=== PATIENT | female | born 1965 | race Hispanic/Latino ===

== ENCOUNTER 2016-09-11 05:41 | Day surgery (SDC) | payer OTHER ==
--- NOTE | 2016-09-10 14:34 | PCM.HPANE ---
Patient Data Surgeon Admitting Provider: Attending Provider:Shelby Gross MD Primary Care Physician:Anne Yee Other Provider:Jack Onofre Anesthesia Reason for Visit Abnormal Uterine And Vaginal Bleeding Ht/WT & BMI Height (Feet): 5 Height (Inches): 2 Weight (Kilograms): 92.900 Body Mass Index 37.00 Allergies Coded Allergies: Sulfa (Sulfonamide Antibiotics) (Verified Allergy, Unknown, Rash, 03/27/14) amoxicillin (Verified Allergy, Unknown, facial swelling, hives, 03/27/14) clavulanic acid (Verified Allergy, Unknown, facial swelling, hives, ) Uncoded Allergies: CODIENE (Adverse Reaction, Mild, upset stomach, 03/27/14) Past Anesthesia History Anesthesia History: Denies:: Abnormal Airway, Anesthesia Reactions, Difficult Intubation, Fam Anesthesia Reaction, Fam Malignant Hypertherm, Malignant Hyperthermia Diabetes History Hx Diabetes?: No MRSA MRSA: No Medications Blood Thinner: Coumadin Reported Medications [arixtra] No Conflict CheckUnknown Dose DAILY 09/08/16 Warfarin Sodium 5 Mg Tablet7.5 Mg PO ,, sat, sun 30 Days Ref 0 last dose coumadin to be 09/0409/08/16 Warfarin Sodium 5 Mg Tablet5 Mg PO 3xweek 30 Days Ref 0 09/08/16 Venlafaxine ER 75 Mg Cap.er.24h75 Mg PO DAILY Ref 0 09/08/16 Tamoxifen Citrate 20 Mg Qrdhee29 Mg PO DAILY 09/08/16 Fish Oil/Borage/Flax/Om3,6,9#1 ([place] 3-6-9 1,200 mg Softgel)1,200 Mg Capsule1, 200 Mg PO DAILY 09/08/16 Multivitamin (Multi Vitamin Daily)1 Each Tablet1 Each PO DAILY 30 Days Ref 0 09/08/16 Cyanocobalamin/Folic Acid (Vitamin M26-Bnajp Acid Tablet)1 Each Tablet1 Each PO DAILY 09/08/16 Cholecalciferol (Vitamin D3) (Vitamin D3)2,000 Unit Capsule2,000 Unit PO DAILY 09/08/16 Calcium Carbonate (Calcium)600 Mg [id number] Mg PO DAILY 09/08/16 Discontinued Reported Medications Venlafaxine ER (Effexor XR)75 Mg Gmaafqv17 Mg PO DAILY Ref 0 05/18/16 Warfarin Sodium 7.5 Mg Tablet7.5 Mg PO TH,SUN 30 Days Ref 0 05/18/16 Tamoxifen Citrate 20 Mg Tuiqzy80 Mg PO DAILY 09/03/15 Warfarin Sodium 5 Mg Tablet5 Mg PO MON,,WED,WED,SAT Ref 0 09/03/15 [place]-3 Fatty Acids/Fish Oil (Fish Oil 1,200 mg Softgel)1 Each Capsule1 Each PO DAILY 06/11/15 Calcium Carbonate (Calcium)600 Mg Qazxfz493 Mg PO DAILY 10/31/14 Cholecalciferol (Vitamin D3) (Vitamin D3)2,000 Unit Tablet2,000 Unit PO DAILY 10/18/14 Cyanocobalamin/Folic Acid (Vitamin L68-Hlfje Acid Tablet)1 Each Tablet1 Each PO DAILY 10/18/14 Multivitamin (Multi Vitamin Daily)1 Each Tablet1 Each PO DAILY 30 Days Ref 0 10/18/14 History History of ENT Problems?: Yes HEENT History: Positive for:: TMJ (wears nightguard) Denies:: Abnormal Airway Cataracts Difficult Intubation Dysphagia Hearing Problem Denture Type: None Teeth Condition: Within Normal Limits Hx of Heart Problems?: Yes Cardiovascular History: Positive for:: Thrombophlebitis (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) Denies:: AICD Abdominal Aortic Aneurism Atrial Fibrillation Cardiac Surgery Chest Pain Congestive Heart Failure Edema Hypertension Irregular Heartbeat Pacemaker Valvular Heart Disease Hx of Respiratory Problem?: No Respiratory History: Positive for:: Pneumonia (prior hx of ) Denies:: Asthma COPD Cough Hemoptysis Oxygen Administration Tuberculosis Use of C-PAP Machine Hx Neurologic Problems?: No Neurological History: Denies:: Alzheimer's Disease CVA Dementia Dizziness Headaches Multiple Sclerosis Parkinson's Disease Seizures Hx of GI Problems?: Yes Hx of Problems?: No Genitourinary History: Denies:: HX of Hemodialysis Kidney Stones Urinary Tract Infection Female Hx: Positive for:: Problems with Breasts? (hx of right breast bx) Denies:: Currently Endometriosis Pelvic Inflammatory Skin History: Denies:: History Skin Disorders? Hx Musculoskeletal Problems?: No Musculoskeletal History: Positive for:: Musculoskeletal Trauma (soreness joints when works) Denies:: Back Injury Degenerative Joint Joint Replacement Systemic Lupus Hx of Psycho/Social Problems?: No Psycho Social History: Positive for:: Anxiety Denies:: Hx Depression Hx Surgeries?: Yes (lumpectomy) Hx Any Other Health Problems?: Yes Other History: Positive for:: Cancer (right breast) Denies:: Endocrine Disease Hospitalization Thyroid Disease History Blood Transfusions: Denies:: Blood Transfusions Hx Diabetes: No Hx Alcohol Use: YesHx Substance Use: No Smoking Status: Never Smoker Have You Smoked inLast 12 mo: No Stop/Bang S-Snoring: Do You Snore Loudly: No T-Tired: feel tired, fatigued: No O-Obsered: Observed not breath: No P-Blood Pressure: treated: No B- Body Mass Index > 35 kg/m2: Yes A- Age over 50: Yes N- Neck Large Circumference: No G- Gender Male: No KARY Total Score: 2 Risk Assessment Category Category 1A: Patient has history of documented sleep apnea, and HAS NOT received any narcotic, sedative or anesthesia administration during this stay. Category 1B: Patient has history of documented sleep apnea, and HAS received any narcotic , sedative or anesthesia administration during this stay Category 2: Patient has SUSPECTED Obstructive Sleep Apnea, and HAS received any narcotic , sedative or anesthesia administration during this stay. Category 3: Patient has SUSPECTED Obstructive Sleep Apnea and HAS NOT received narcotic, sedative or anesthesia administration during this stay. Category 4: Outpatient in Procedural Areas with known sleep apnea or who screen positive for High Risk via the STOP/BANG questionnaire. Exam Exam General Appearance: Alert, Oriented X3, Cooperative HEENT/AIRWAY: MP 2, Neck Movement (from), Mouth Opening (wnl) Lungs: Clear to Auscultation Heart: Exam Unremarkable Plan Impression Patient chart reviewed, patient interviewed and anesthestic plan with risks, benefits, and alternatives discussed, and informed consent obtained. ASA Physical Status: ASA2 Mod Systemic Disease Anesthetic Plan: GA Bene/Risks/Altern/Consents: Yes HP Complete Prior to Induction: Yes Jude Moreno MD Sep 10, 2016 14:34
[~2016-09-11] VITALS: Ht 157.5 cm; Wt 96.0 kg
[2016-09-11] VITALS (12 sets, daily range): BP systolic 93–122; BP diastolic 56–85; PULSE 64–91; RESP 14–18; O2SAT 94–100
[2016-09-11] MEDS: Lactated Ringer's 1,000 ML IV SCH ×6 (05:00→19:32)
[~2016-09-11 05:41] MED LIST: ARIXTRA; CALC600T12 PO; CHOL200047 PO; CYAN1TAB42 PO; FISH12002 PO; LORazepam 1 mg Tablet PO PRN; MULT-1018 PO; TAMO20TA4 PO; VENL75CA95 PO; WARF5TAB7 PO; fentaNYL-PF 50 mCg/mL 2 mL Inj IVPUSH PRN
[2016-09-11] MEDS ORDERED: Ondansetron 2 mg/mL 2 mL Inj ONE (05:42)
[2016-09-11] MEDS ORDERED: Propofol 10,000 mCg/mL 20 mL Inj ONE (05:42)
[2016-09-11] MEDS ORDERED: fentaNYL-PF 50 mCg/mL 2 mL Inj ONE (05:42)
[2016-09-11] MEDS ORDERED: HYDROmorphone 1 mg/mL Inj ONE (05:42)
[2016-09-11] MEDS ORDERED: Glycopyrrolate 0.2 MG/ML 1mL Inj ONE (05:42)
[2016-09-11] MEDS ORDERED: Remifentanil 1 mg/3 mL Inj ONE (05:42)
[2016-09-11] MEDS ORDERED: Neostigmine 1 mg/mL 10 mL Inj ONE (05:42)
[2016-09-11] MEDS ORDERED: Rocuronium 10 mg/mL 5 mL Inj ONE (05:42)
[2016-09-11] MEDS ORDERED: CeFAZolin Inj 2 GM in IV Premix 1 EACH IV ONE (06:00)
[2016-09-11] MEDS ORDERED: CeFAZolin 2 Gm/50 mL D5W Duplex Bag IV ONE (06:02)
[2016-09-11 06:37] LABS: BASOPHILS % (AUTO) 0.2 % (0-3); EOSINOPHILS % (AUTO) 0 % (0-5); MONOCYTES % (AUTO) 6.9 % (4-12); Mean Corpuscular Hemoglobin 30.8 pg (27.0-35.0); Mean Corpuscular Volume 91.5 fL (81-100); NEUTROPHILS % (AUTO) 48.2 % (40-74); Platelet Count 181 bil/L (150-400)
[2016-09-11 06:51] LABS: INR 0.95 ratio
[2016-09-11] MEDS ORDERED: Heparin 5,000 Unit/mL Inj ONE (07:20)
[2016-09-11] MEDS ORDERED: Heparin 5,000 Unit/mL Inj SUBQ ONE (07:55)
[2016-09-11] MEDS ORDERED: Lactated Ringer's 500 ML IV PRN (07:57)
[2016-09-11] MEDS ORDERED: Lactated Ringer's 1,000 ML IV SCH (07:57)
[2016-09-11] MEDS ORDERED: hydrALAZINE 20 mg/mL Inj IVPUSH PRN (08:00)
[2016-09-11] MEDS ORDERED: Labetalol 5 mg/mL 4 mL Inj IV PRN (08:00)
[2016-09-11] MEDS ORDERED: EPHEDrine Sulfate 50 mg/mL Inj IVPUSH PRN (08:00)
[2016-09-11] MEDS ORDERED: Dexamethasone 4 mg/mL Inj IVPUSH PRN (08:00)
[2016-09-11] MEDS ORDERED: Phenylephrine 10,000 mCg/mL Inj IVPUSH PRN (08:00)
[2016-09-11] MEDS ORDERED: HYDROmorphone 1 mg/mL Inj IVPUSH PRN (08:00)
[2016-09-11] MEDS ORDERED: Atropine 0.4 mg/mL Inj IVPUSH PRN (08:00)
[2016-09-11] MEDS ORDERED: Ondansetron 2 mg/mL 2 mL Inj IVPUSH PRN ×2 (08:00→10:50)
[2016-09-11] MEDS ORDERED: fentaNYL-PF 50 mCg/mL 2 mL Inj IVPUSH PRN (08:00)
[2016-09-11] MEDS ORDERED: Bupivacaine-MPF 0.5% W/EPI 30 mL Inj INFILTRATE ONE (08:11)
[2016-09-11] MEDS ORDERED: Lactated Ringer's 1,000 ML IV ONE (10:17)
--- NOTE | 2016-09-11 11:53 | PCM.ANEP1 ---
Post Anesthesia PACU Phase 1 Assessment Vital Signs Vital Signs Date Time Temp Pulse Resp B/P Pulse Ox O2 Delivery O2 Flow Rate FiO2 09/11/16 11:45 79 16 119/70 99 Nasal Cannula 2 09/11/16 11:36 64 15 121/70 98 Room Air 09/11/16 11:22 71 16 120/69 96 Room Air 09/11/16 11:15 77 17 122/68 97 Room Air 09/11/16 11:10 91 16 109/69 100 Simple Mask 8 09/11/16 11:05 91 14 118/66 100 Simple Mask 8 09/11/16 11:00 91 15 110/65 99 Simple Mask 8 09/11/16 10:57 36.6 86 17 119/56 98 Simple Mask 8 09/11/16 06:14 36.2 67 16 114/62 97 Room Air Anesthetic Administered: GA Level of Alertness: Awake, talking SAVAGE's with Equal Strength: Yes Pain: No Nausea or Vomiting: No CV Function & Hydration Stable: Yes Airway Device: Oxygen Delivery: Simple Mask Lungs: Normal Air Movement PACU Phase 2 Assessment Complications: No Follow up Care: No Patient Instructions Provided: N/A Jude Moreno MD Sep 11, 2016 11:53
--- NOTE | 2016-09-11 13:16 | OP ---
[address] [address] OPERATIVE REPORT PATIENT: CLOVIS DE ANDA : 1965 MR#: [id number] ADMIT: 09/11/2016 JOB ID: [id number] DATE OF SURGERY: 09/11/2016 SURGEON: Shelby Gross MD. CLAIM INSPECTOR: Verna Hansen MD. A it administrative assistant is very necessary for this procedure to complete for help with exposure and assist performing the procedure. PREOPERATIVE DIAGNOSIS(ES): 1. Postmenopausal vaginal bleeding. 2. History of breast cancer. 3. Desire for hysterectomy and bilateral salpingo-oophorectomy. POSTOPERATIVE DIAGNOSIS(ES): 1. Postmenopausal vaginal bleeding. 2. History of breast cancer. 3. Desire for hysterectomy and bilateral salpingo-oophorectomy. INDICATION FOR PROCEDURE: Same as above. This is a 51-year-old female, history of breast cancer, status post radiation therapy and also has been on tamoxifen for a couple of years. History of DVT, on Coumadin. She had postmenopausal vaginal bleeding. Endometrial biopsy was benign. Patient discussed with her hematology oncologist. Desire for hysterectomy, bilateral oophorectomy, so she can switch her medication from tamoxifen to other choices, then she may have chance to stop coumadin. Discussed with patient about the benefits, risks, alternatives of procedure. Patient understood the risk of infection, bleeding, injury to the organs around the uterus including but not limited to the bladder, ureters, major vessels, nerves, and bowels. She also understood there is a possibility of a laparotomy if procedure could not be completed by laparoscopy. Patient understood there is risk of symptoms, hot flashes, night sweats when ovaries removed. Informed consent signed. Patient was transferred to operating room after anesthesia was noted to be adequate. She was placed, dorsal lithotomy position. She was prepared and draped as normal sterile fashion. A speculum inserted to vagina, exposed the cervix. The cervix was grasped by a single-tooth tenaculum and cervix was dilated to 5 mm gently. A medium-sized VCare placed for manipulation. Meyer catheter inserted for urine drainage. Then, Veress needle inserted to her umbilicus to form pneumoperitoneum. Then, the Veress needle removed. A 5 mm incision placed at her umbilical area. Trocar placed with direct visualization. The pelvis and the abdominal cavity was examined. Noticed normal sized uterus, bilateral ovaries and tubes. Upper abdomen has no abnormal finding. Another two 5 mm incisions placed, both left and right side of lower abdomen. Two 5 mm trocars placed. At this time, the left IP ligament was grasped by Thunderbeat, coagulated and cut. Then, the left round ligament was grasped by Thunderbeat, coagulated, cut. The left broad ligament was brought down by the Thunderbeat in steps, to the level of the internal cervical os. Then, at this time, the bladder flap was created with Thunderbeat. The bladder was lowered down both bluntly and sharply, from uterine cervix. The posterior broad ligament was brought down to the level of the uterine sacral ligament. At this time, the left uterine artery was skeletonized and coagulated and cut. The same procedure was performed on the right side. At this time, valsectomy performed with thunderbeat and uterus removed from vagina. The vaginal cuff was sutured laparoscopicallyby Vloc suture, continuously. Suspension of bilateral uterosacral ligaments was performed. The pelvis was irrigated by warm normal saline. Hemostasis confirmed. Then, cystoscopy was performed. Confirmed no injury for the bladder. Confirmed that both ureters have clear urine spilled . All instruments removed from patient. The three 5 mm incisions closed with 4-0 Monocryl subcutaneously. The EBL during the procedure was 100 cc. All instrument, needles, laps and gauzes counted correct twice. Urine output during procedure was 300 cc. Fluid in was a liter. Two g Ancef was given before procedure; 5000 heparin was given subcu before the procedure. The patient was transferred to recovery room in a stable condition. [facility] MED[facility] CENTERJennifer
--- NOTE | 2016-09-11 14:30 | NUR ---
POST-OP Received from PACU via a gurney. On O2 at 2 LPM via NC. IVF ongoing. Patient is drowsy but can easily wake up. Denies pain/nausea/SOB. Puncture sites are CDI in her abdomen with Dermabond noted. IFC intact and draining to rick colored UO. Oriented to room and call light.
[2016-09-11] MEDS: oxyCODONE-Acetamin 5-325 mg Tablet PO PRN (18:48)
--- NOTE | 2016-09-11 21:05 | NUR ---
pain Rated 4 after 1 percocet. Alert, VSS. Taking bites of PO and drinking fluids. No nausea.
[2016-09-12 00:28] VITALS: BP 92/60; PULSE 72; RESP 18; O2SAT 98
[2016-09-12] MEDS: oxyCODONE-Acetamin 5-325 mg Tablet PO PRN ×3 (00:32→11:57)
[2016-09-12 04:16] VITALS: BP 90/61; PULSE 83; RESP 18; O2SAT 98
[2016-09-12] MEDS: Lactated Ringer's 1,000 ML IV SCH (04:27)
[2016-09-12 05:11] VITALS: BP 96/63
[2016-09-12] MEDS ORDERED: Heparin 5,000 Unit/mL Inj SUBQ SCH (06:00)
[2016-09-12 08:01] VITALS: BP 99/65; PULSE 71; RESP 16; O2SAT 94
--- NOTE | 2016-09-12 10:53 | PCM.DIGYN ---
Surgical Discharge Instruction Dates of Hospitalization Date of Hospital Admission Providers Admitting Physician: Primary Care Physician: Anne Yee Attending Physician: Shelby Gross MD Diet Discharge Diet: No restrictions Activity Discharge Activity-General: Be up and about, Balance rest and activity, Activity as pain allows, No lifting >10 pounds for 4-6 weeks, No driving while taking narcotic Dressing and Incisional Care Hygiene: May shower, NO bathtub, hot tub or whirlpool Follow Up Plan Follow-up Provider (F9): Shelby Gross MD Follow-up appointment: Weeks (2) Call your provider for: Fever, Chills, Shortness of breath, Vomitting, Heavy vaginal bleeding, Wound redness, Increasing pain Verna Hansen MD Sep 12, 2016 10:53
[2016-09-12] MEDS ORDERED: IBUP800T28 PO (10:54)
[2016-09-12] MEDS ORDERED: OXYC1TAB24 PO (10:54)
[2016-09-12 11:07] LABS: BASOPHILS % (AUTO) 0.2 % (0-3); EOSINOPHILS % (AUTO) 0 % (0-5); Mean Corpuscular Hemoglobin 30.1 pg (27.0-35.0); Mean Corpuscular Volume 93.9 fL (81-100); NEUTROPHILS % (AUTO) 48.4 % (40-74); Platelet Count 161 bil/L (150-400)
[2016-09-12 11:22] LABS: INR 0.95 ratio
--- NOTE | 2016-09-12 12:16 | DIS ---
[address] [address] DISCHARGE SUMMARY PATIENT: CLOVIS DE ANDA : 1965 MR#: [id number] ADMIT: 09/11/2016 JOB ID: [id number] DIS: ADMISSION DIAGNOSES: 1. A 51-year-old female with a history of breast cancer on tamoxifen therapy desiring total laparoscopic hysterectomy with bilateral salpingo-oophorectomy so that she can switch to anastrozole therapy for her breast cancer treatment. 2. History of deep venous thrombosis. DISCHARGE DIAGNOSIS: 1. A 51-year-old female with a history of breast cancer on tamoxifen therapy desiring total laparoscopic hysterectomy with bilateral salpingo-oophorectomy so that she can switch to anastrozole therapy for her breast cancer treatment. 2. History of deep venous thrombosis. PROCEDURE PERFORMED: Total laparoscopic hysterectomy with bilateral salpingo-oophorectomy with cystoscopy. REASON FOR ADMISSION: This is a 51-year-old female who presented to the clinic with Dr. Gross to discussed hysterectomy with oophorectomy as part of her breast cancer treatment plan. She was on tamoxifen therapy and was desiring to switch to anastrozole. She also had a history of a DVT on Coumadin. Risks, benefits, and alternatives were discussed with her in clinic and she elected to proceed. HOSPITAL COURSE: The patient was admitted on the to undergo the above-stated procedure. Surgery went well, without any complications. Please see the operative report for full details. She did well overnight and she was kept for observation until postoperative day number one, given her history of a DVT on anticoagulation. By postoperative day number one, her pain was well controlled with oral pain medications. She was tolerating a regular diet without any nausea or vomiting. She was passing flatus. She was ambulating without difficulty and her Meyer catheter was removed on postoperative day number one, with plans to ensure voiding is possible prior to discharge. Her hemoglobin was 12.3 preoperatively and she had minimal blood loss. However, by postoperative day number one she did have some hypotension so a repeat CBC was collected and this will be followed up on prior to discharge. She was otherwise deemed stable for discharge on postoperative day number one. INSTRUCTIONS AT DISCHARGE: The patient was advised to remain on pelvic rest for six weeks including no tampons, douching, or intercourse. She was asked to call with any signs or symptoms of infection including fever greater than 100.5 degrees, severe pain, malodorous vaginal discharge, or bleeding greater than a pad per hour. MEDICATIONS AT DISCHARGE: Included ibuprofen 800 mg p.o. t.i.d. as well as Percocet 5/325 1-2 tabs p.o. q.4 hours p.r.n. pain dispensed #30. She was kept on her home medications as prescribed and will follow up with Dr. Pinzon regarding switching from tamoxifen to anastrozole. Her anticoagulation plan was figured out prior to admission with plans to restart her Arixtra and Coumadin 1-2 days after the procedure, with discontinuation of the Arixtra five days after. An INR was checked prior to discharge per her request. All questions and concerns of the patient were answered. She is deemed stable for discharge on postoperative day number one. PHYSICAL EXAMINATION: On the day of discharge her temperature is 37.0, pulse is 71, respiratory rate is 16, blood pressure is 99/65 with a range of 90s over 60s over the last 12 hours. In general, she is awake, alert, and oriented, in no acute distress, lying comfortably in the bed. Her heart shows regular rate and rhythm. Her lungs are clear to auscultation bilaterally. Her abdomen is soft. It is appropriately tender. It is nondistended. Her incision port sites are without erythema or induration and appear to be healing well. She has normoactive bowel sounds. Her extremities show no tenderness or edema. She was deemed stable for discharge on postoperative day number one.
[2016-09-12 12:46] VITALS: BP 111/75; PULSE 75; RESP 18; O2SAT 98
--- NOTE | 2016-09-12 13:47 | NUR ---
Discharge Pt to discharge home with Rey per pt. A&Ox3, SAVAGE, VSS - BP stable, Pain tolerable with current pain medication regimen, IV dc'd intact, Hard copy scripts, CareNotes and instructions provided on s/sx to seek medical attention for/dc dx/new medications. Call to Dr. Hansen to verify Arixtra and Warfarin restart plan - per MD, Dr. Gross had already gone over this with pt. Pt had previously asked which prompted the phone call, but pt then stating having had a written plan re: anticoagulants - will follow plan per Dr. Gross. Await pt ride. All personal belongings with her in room at this time. No questions/concerns at this time. Addendum: 09/12/16 at 1355 by MARILU CHAUDHRY RN Looney dc'd at 1110. Verbal order for removal per Dr. Hansen. Pt made aware of plan of looney dc and the need to void within 4 hours. Pt voided at ~1300, 400cc pale urine output. Denied any issues with urination and ready to go home. Addendum: 09/12/16 at 1509 by MARILU CHAUDHRY RN Pt walked off unit to vehicle with Rey at 1425. All personal belongings in hand. No questions/concerns at ks.
--- NOTE | 2016-09-16 11:22 | PATH ---
SURGICAL PATHOLOGY Attending Physician:Shelby Gross MD CASE STATUS: Signed Out PATIENT NAME: CLOVIS DE ANDA PID: [id number] : 1965 DATE COLLECTED:09/11/2016 17:15 SPECIMEN: Uterus +/- tubes/ovaries, except neoplastic, prolapse CLINICAL HISTORY: ABNORMAL UTERINE & VAGINAL BLEEDING 1. UTERUS BILATERAL TUBES OVARIES FINAL DIAGNOSIS: Uterus with Bilateral Ovaries and Fallopian Tubes: Minimally proliferative endometrium with prominent glandular and stromal breakdown. Status post previous segmental tubal ligation, bilateral. Ovaries unremarkable. ICD10: N93.8 GROSS DESCRIPTION: The specimen is received in formalin, labeled with the patient's name, sublabeled as uterus, bilateral tubes + ovaries, and consists of a uterus (81 g, 3.8 cm AP, 7.5 cm SI, 4.8 cm ML) with attached ovaries (right-2.0 x 1.5 x 1.1 cm; left-2.5 x 1.8 x 1.2) and fimbriated fallopian tubes (right: length-1.8 cm, diameter-0.4 cm; left: length-5.0 cm, diameter-0.4 cm). The cervix (2.5 x 2.5 cm) has a transverse os and patent endocervical canal. The endometrium (average thickness-0.1 cm) is farah-pink smooth and flat. The myometrium (thickness-1.9 cm) is farah and unremarkable. The serosa is farah smooth and shiny. The ovaries have corbett-yellow smooth shiny flat serosa. The parenchyma is corbett-farah with corpus albicans identified. The fallopian tubes are surgically segmented and have purple-corbett smooth shiny serosa and farah unremarkable lumens. Section code: (A) anterior cervix; (B) posterior cervix; (C, D) anterior endomyometrium; (E, F) posterior endomyometrium; (G) right ovary, serially sectioned, warehouse representative; (H) left ovary, serially sectioned, warehouse representative; (I) right fallopian tube, serially sectioned, warehouse representative; (J) right fimbria, bivalved, entirely submitted; (K) left fallopian tube, serially sectioned, warehouse representative; (L) left fimbria, bivalved, entirely submitted. 09/12/16 ICD-9 CODES: CPT CODES: 1: 33461 Electronically Signed Out Byron Tirado MD [facility] [address], [place] [address] Technical component performed at [facility], [facility] [address], [address]
== END 2016-09-12 14:25 | disposition home or self-care (01) ==
LOC: SAS 05:41 → OSC 12:13 → SAS 09-12 14:25
PROVIDERS: ATTEND Obstetrics & Gynecology
DX: N93.9 Abnormal uterine and vaginal bleeding, unspecified (principal); G89.18 Other acute postprocedural pain; K21.9 Gastro-esophageal reflux disease without esophagitis; F32.9 Major depressive disorder, single episode, unspecified; Z85.3 Personal history of malignant neoplasm of breast; Z92.3 Personal history of irradiation; Z86.718 Personal history of other venous thrombosis and embolism; Z79.01 Long term (current) use of anticoagulants; Z86.010 Personal history of colon polyps
CPT/HCPCS: 36415; 58571; 85025; 85610; 96374; 96376; J0690; J1170; J1644; J1885; J2405; J2710; J3010; J7120